=== PATIENT | female | born 1975 | race Caucasian/White ===

== ENCOUNTER → 2024-12-18 | Outpatient (CLI) | payer BC ==
[2024-12-18 13:48] LABS: BASO # 0.0 10^3/uL (0.0-0.2); BASO % 0.2 % (0.0-1.0); EOS # 0.0 10^3/uL (0.0-0.5); EOS % 0.2 % (0.0-3.0); LYMPH # 1.0 10^3/uL (1.5-5.0); LYMPH % 8.2 % (24.0-44.0); MONO # 0.3 10^3/uL (0.0-0.8); MONO % 2.1 % (2.0-8.0); NEUTROPHILS # 11.1 10^3/uL (1.5-8.5); NEUTROPHILS % 88.1 % (36.0-66.0); PLATELET COUNT, AUTOMATED 339 10^3/uL (150-450)
[2024-12-18 13:55] LABS: ERYTHROCYTE SEDIMENTATION RATE 13 mm/hr (0-20)
[2024-12-18 14:19] LABS: C REACTIVE PROTEIN QUANTITATIV 0.77 MG/DL (<1.0); RHEUMATOID FACTOR QUANT < 3.5 IU/ML (<14)
[2024-12-18 14:22] LABS: IMMUNOGLOBULIN E 3.8 IU/ML (0-378)
[2024-12-22 22:53] LABS: LYME TOTAL ANTIBODY CIA <= 0.90 Index (<=0.90)
== END ==
LOC: M PLALAB 11:23
PROVIDERS: ATTEND Internal Medicine Infectious Disease
DX: M25.50 Pain in unspecified joint (principal); J98.8 Other specified respiratory disorders; R53.82 Chronic fatigue, unspecified